=== PATIENT | male | born 1965 | race Hispanic/Latino ===

== ENCOUNTER 2018-08-14 16:09 | Emergency (ER) | payer MEDICARE ==
[~2018-08-14] VITALS: Ht 175.3 cm; Wt 63.5 kg
[~2018-08-14 16:09] MED LIST: AMITIZA24 MCG PO; ASPIRIN81 MG PO; ATIVAN0.5 MG PO; CALCIUM CARBON500 MG PO; CLONIDINE HCL0.1 MG PO; CLONIDINE HCL0.2 MG PO; CYCLOBENZAPRINE5 MG PO; FOLIC ACID1 MG PO; LABETALOL HCL100 MG PO; LACTULOSE20 GM/30 M PO; LANTUS 3ML100 UNITS/ SQ; LEVAQUIN500 MG PO; LISINOPRIL20 MG PO; LISINOPRIL40 MG PO; LYRICA50 MG PO; METOPROLOL TART50 MG PO; MIRALAX17 GM PO; NEXIUM40 MG PO; NIFEDIPINE ER30 M1 PO; NITROGLYCERIN0.4 MG SL; NOVOLOG MI100 UNITS/; NOVOLOG100 UNIT/1; RENVELA0.8 GM PO; ROZEREM8 MG PO; SENSIPAR30 MG PO; SIMVASTATIN20 MG PO; TERAZOSIN HCL10 MG PO; TRAZODONE HCL50 MG PO; ULTRAM 50MG50 MG PO
--- OUTSIDE RECORDS SUMMARY | 2018-08-14 16:11 | XMS REPORT ---
[facility] Address Unknown Phone Unavailable Care Team Providers Care Kick Press Operator Name Role Phone EVELIO GOLDSMITH Unavailable Unavailable Payers Payer Name Policy Type Policy Number Effective Date Expiration Date Problems This patient has no known problems. Allergies, Adverse Reactions, Alerts Allergy Name Allergy Type Status Severity Reaction(s) Onset Date Inactive Date Treating Clinician Comments No Known Allergies DA Active U 2018-04-10 00:00:00 No Known Allergies DA Active U 2017-12-27 00:00:00 Medications This patient has no known medications. Results Test Description Test Time Test Comments Text Results Atomic Results Result Comments CHEST SINGLE (PORTABLE) [place] [address] Patient Name: JESUS AMEZQUITA MR #: [id number] : 1965 Age/Sex: 51/M Req #: [id number] Adm Physician: EVELIO GOLDSMITH MD Ordered by: EVELIO GOLDSMITH MD Report #: [id number] Location: ICU Room/Bed: [place] [address] Procedure: [id number] DX/CHEST SINGLE (PORTABLE) Exam Date: 08/19/17 Exam Time: 2142 REPORT STATUS: Signed EXAMINATION: CHEST SINGLE (PORTABLE) INDICATION: Shortness of breath COMPARISON: CT of the chest on 03/20/2017 FINDINGS: TUBES and LINES: None. LUNGS: Diffuse worsening of the multifocal airspace disease with right-sided predominance. Diffuse interlobular septi thickening present. PLEURA: Small left pleural effusion present. HEART AND MEDIASTINUM: Cardiac size is moderately enlarged. BONES AND SOFT TISSUES: No acute osseous lesion. Soft tissues are unremarkable. UPPER ABDOMEN: No free air under the diaphragm. IMPRESSION: Findings are consistent with worsening pulmonary edema versus multifocal pneumonia. Small left pleural effusion. Signed by: Dr. Omer Judd M.D. on 03/27/2017 10:48 PM Dictated By: OMER RUIZ MD 47 Transcribed By: JUSTIN on 03/27/172247 COPY TO: EVELIO GOLDSMITH MD
--- NOTE | 2018-08-14 18:55 | Diagnostic Imaging Report ---
Right rib multiple views CPT code: 43612 History: Fall, right rib pain near T-spine Comparison: Chest x-ray 03/27/2017. Findings: The rib structures on the right appear intact. There a is no rib dislocation. There is suspicion for an acute fracture of the ninth rib. There is a healing fracture of the right anterior eighth rib. Visualized left-sided ribs demonstrate sclerosis of the lateral aspect of the left sixth or seventh rib. This is incompletely imaged. PA chest x-ray demonstrates cardiomegaly and aortic ectasia. No pleural effusion or pneumothorax. Lungs are clear. Surgical clips are in the right upper quadrant. IMPRESSION: Nondisplaced acute fracture of the right ninth rib. Healing fracture of the right eighth rib. Sclerosis of the left sixth or seventh rib, incompletely imaged. No pleural or pulmonary injury. Thank you for your referral. Signed by: Dr. Soy Leslie MD on 08/14/2018 6:52 PM
[2018-08-14 19:38] VITALS: BP 170/90
[2018-08-14] MEDS ORDERED: HYDROCODONE/APAP 10MG-325MG TAB PO ONE (20:00)
== END 2018-08-14 19:39 | disposition home or self-care (01) ==
LOC: ER 16:09
DX: S22.31XA Fracture of one rib, right side, initial encounter for closed fracture (principal); W18.09XA Striking against other object with subsequent fall, initial encounter; Y93.E1 Activity, personal bathing and showering; Y92.002 Bathroom of unspecified non-institutional (private) residence as the place of occurrence of the external cause; I10 Essential (primary) hypertension; E11.40 Type 2 diabetes mellitus with diabetic neuropathy, unspecified; N18.9 Chronic kidney disease, unspecified
CPT/HCPCS: 71101; 99283